=== PATIENT | male | born 1990 | race Caucasian/White ===

== ENCOUNTER 2018-01-15 20:17 | Emergency (ER) | payer SELFPAY ==
[~2018-01-15] VITALS: Ht 172.7 cm; Wt 74.6 kg
[~2018-01-15 20:17] MED LIST: APAP/HYDROCODON1 T13 PO; COL100 PO
[2018-01-15 20:23] VITALS: Ht 172.7 cm; Wt 74.6 kg
[2018-01-15 21:49] VITALS: BP 130/70
== END 2018-01-15 21:49 | disposition home or self-care (01) ==
LOC: ED 20:17
DX: H61.21 Impacted cerumen, right ear (principal)

== ENCOUNTER 2018-09-22 15:26 | Emergency (ER) | payer SELFPAY ==
[~2018-09-22] VITALS: Ht 167.6 cm; Wt 73.0 kg
[2018-09-22 15:31] VITALS: BP 123/79; Ht 167.6 cm; Wt 73.0 kg
== END 2018-09-22 17:14 | disposition home or self-care (01) ==
LOC: ED 15:26
DX: S62.502A Fracture of unspecified phalanx of left thumb, initial encounter for closed fracture (principal); Z98.890 Other specified postprocedural states; W23.0XXA Caught, crushed, jammed, or pinched between moving objects, initial encounter; Y93.89 Activity, other specified; Y92.89 Other specified places as the place of occurrence of the external cause; Y99.8 Other external cause status

== ENCOUNTER 2020-08-03 12:26 | Emergency (ER) | payer SELFPAY ==
[~2020-08-03] VITALS: Ht 170.2 cm; Wt 75.3 kg
[2020-08-03 12:33] VITALS: BP 129/88; Ht 170.2 cm; Wt 75.3 kg
== END 2020-08-03 13:46 | disposition home or self-care (01) ==
LOC: ED 12:26
DX: S91.331A Puncture wound without foreign body, right foot, initial encounter (principal); W34.09XA Accidental discharge from other specified firearms, initial encounter; Y93.89 Activity, other specified; Y92.89 Other specified places as the place of occurrence of the external cause; Y99.8 Other external cause status
CPT/HCPCS: 90715